=== PATIENT | female | born 1950 | race Caucasian/White ===

== ENCOUNTER → 2017-08-19 | Outpatient (CLI) | payer MEDICARE, BC | END | disposition home or self-care (01) | LOC: PCVCCLINIC 11:30 | PROVIDERS: ATTEND Internal Medicine Cardiovascular Disease | DX: I10 Essential (primary) hypertension (principal); E78.00 Pure hypercholesterolemia, unspecified; E11.9 Type 2 diabetes mellitus without complications; M19.90 Unspecified osteoarthritis, unspecified site; Z79.899 Other long term (current) drug therapy; Z79.82 Long term (current) use of aspirin | CPT/HCPCS: 80061; 93005; G0463 ==

== ENCOUNTER → 2018-08-25 | Outpatient (CLI) | payer MEDICARE | END | disposition home or self-care (01) | LOC: PCVCCLINIC 09:50 | PROVIDERS: ATTEND Nurse Practitioner Adult Health | DX: I10 Essential (primary) hypertension (principal); E78.00 Pure hypercholesterolemia, unspecified; E11.9 Type 2 diabetes mellitus without complications; M79.7 Fibromyalgia; K75.81 Nonalcoholic steatohepatitis (NASH); K74.60 Unspecified cirrhosis of liver; Z79.82 Long term (current) use of aspirin | CPT/HCPCS: 36415; 80061; 93005; G0463 ==

== ENCOUNTER → 2019-05-29 | Outpatient (CLI) | payer MEDICARE, BC ==
--- NOTE | 2019-05-30 13:31 | PCVCIMAG ---
APPROVED REPORT Study performed: 05/29/2019 10:32:00 Exam: Stress Echocardiogram Indication: Hyperlipidemia, Hypertension Patient Location: Echo lab Stress Nurse: Michaela Sainz RN Status: routine Ht: 5 ft 5 in BP: 120/80 mmHg Medical History Medical History: Diabetes, Fibromyalgia Procedure The patient underwent an Exercise Stress Test using the Cole Protocol. Blood pressure, heart rate, and EKG were monitored. An Echocardiogram was performed by chemical engineering technician in four stages in quad fashion. At peak stress, four selected images were obtained and placed side by side with resting images for comparison. Stress Test Details Stress Test: Exercise stress testing was performed using a Cole protocol. HR Resting HR: 87 bpmMax Heart Rate (APMHR): 151 bpm Max HR Achieved: 139 bpmTarget HR (85% APMHR): 128 bpm % of APMHR: 92 Recovery HR: 99 bpm HR response to stress: Normal HR response to stress BP Resting BP: 120/80 mmHg Max BP: 148/86 mmHg Recovery BP: 144/82 mmHg BP response to stress: Normal blood pressure response to stress. ECG Resting ECG: Sinus Rhythm Stress ECG: Sinus Rhythm Recovery ECG: Sinus Rhythm Clinical Reason for Termination: Maximal effort Exercise duration: 4 min sec Highest Stage Achieved: Stage 2: 2.5 mph at 12% grade. Exercise capacity: 5.70 METs Overall Exercise Capacity for Age: Poor Stress ECG Conclusion ECG: Non-ischemic Pre-Stress Echo The resting Echocardiogram showed normal left ventricular contractility with an estimated Ejection Fraction of about >55%. Normal wall motion in all segments on baseline images. Post-Stress Echo The stress Echocardiogram showed normal left ventricular contractility with an estimated Ejection Fraction of about 55-60%. Normal augmentation of wall motion in all segments on post stress images. Clinical No clinical or ECG evidence for ischemia. Conclusion Clinical Response: Non-ischemic Exercise Capacity: Below Average Stress ECG Response: Indeterminant Stress Echo Images: Non-ischemic The left ventricle is normal in size. Mild concentric left ventricular hypertrophy. Severe Mitral annular calcification. No significant valvular abnormalites. Other Information Study Quality: Poor <Conclusion> The left ventricle is normal in size. Mild concentric left ventricular hypertrophy. Severe Mitral annular calcification. No significant valvular abnormalites.
== END | disposition home or self-care (01) ==
LOC: PCVCIMAG 09:46
PROVIDERS: ATTEND Internal Medicine Cardiovascular Disease
DX: I34.0 Nonrheumatic mitral (valve) insufficiency (principal); I11.9 Hypertensive heart disease without heart failure; E78.2 Mixed hyperlipidemia; Z88.6 Allergy status to analgesic agent
CPT/HCPCS: 93325; 93351